=== PATIENT | male | born 1960 | race Caucasian/White ===

== ENCOUNTER 2016-08-11 22:43 | Emergency (ER) | payer OTHER ==
[2016-08-11 23:18] LABS: BASOPHIL 0.5 % (0-2); HCT 44.8 % (42.0-52.0); HGB 15.5 g/dl (13.2-18.0); LYMPHOCYTE 36.5 % (15-48); MCH 31.4 pg (25.0-31.0); MCHC 34.6 g/dL (32.0-36.0); MCV 90.7 fL (78.0-100.0); MONOCYTE 9.3 % (0-12); NEUTROPHIL 48.7 % (41-80); PLT 295 K/uL (150-400); RBC 4.94 M/uL (4.70-6.00); RDW 14.4 % (11.5-14.0); WBC 15.1 K/uL (4.0-10.5)
[2016-08-11 23:43] LABS: BILIRUBIN - TOTAL 0.3 mg/dL (0.1-1.0); CREATININE 1.3 mg/dL (0.7-1.2); GLOBULIN (CALCULATION) 2.4 g/dL (2.2-4.2); POTASSIUM 3.2 mmol/L (3.5-5.1); TOTAL PROTEIN 6.4 g/dL (6.4-8.3)
[2016-08-12 00:13] LABS: BILIRUBIN NEGATIVE (NEGATIVE); BLOOD 3+ Ery/uL (NEGATIVE); CLARITY TURBID (CLEAR); COLOR RED (YELLOW); GLUCOSE (U) NORMAL (NORMAL); KETONE (U) 1+ (SMALL) mg/dL (NEGATIVE); LEUKOCYTES 1+ Leu/uL (NEGATIVE); NITRITE POSITIVE (NEGATIVE); PROTEIN 3+ mg/dL (NEGATIVE); SPECIFIC GRAVITY 1.025 (1.001-1.030); pH 6.5 (5.0-9.0)
[2016-08-12 00:15] LABS: BACTERIA TRACE; URINARY RBC TNTC
[2016-08-12 00:16] LABS: CALCIUM OXALATE CRYSTALS LARGE
[2016-08-12 01:22] LABS: AMPHETAMINES NEGATIVE (NEGATIVE); BARBITURATES NEGATIVE (NEGATIVE); COCAINE NEGATIVE (NEGATIVE); MARIJUANA (THC) NEGATIVE (NEGATIVE); METHADONE NEGATIVE (NEGATIVE); TRICYCLIC ANTIDEPRESSANT NEGATIVE (NEGATIVE)
[2016-08-12 01:23] LABS: BENZODIAZEPINES POSITIVE (NEGATIVE)
== END 2016-08-12 03:17 | disposition home or self-care (01) ==
LOC: FER 22:43
PROVIDERS: Emergency Medicine
DX: N13.2 Hydronephrosis with renal and ureteral calculous obstruction (principal); R19.7 Diarrhea, unspecified; N50.811 Right testicular pain; J44.9 Chronic obstructive pulmonary disease, unspecified; Z88.0 Allergy status to penicillin; Z79.51 Long term (current) use of inhaled steroids; Z87.19 Personal history of other diseases of the digestive system; Z86.19 Personal history of other infectious and parasitic diseases
CPT/HCPCS: 36415; 80053; 80305; 81001; 82150; 83605; 83690; 85025; 87088; J2270; J2405

== ENCOUNTER 2021-08-28 13:13 | Emergency (ER) | payer OTHER ==
[~2021-08-28 13:13] MED LIST: ASPIRIN325 MG PO; FLEXERIL10 MG PO; IBUPROFEN800 MG PO; MEDROL 4MG DOSEP4 MG PO; PERCOCET 5-3251 EACH PO; PREDNISONE 20MG20 MG PO; ROBAXIN750 MG PO
[2021-08-28] MEDS ORDERED: MOTRIN600 MG PO (15:36)
[2021-08-28] MEDS ORDERED: CLEOCIN HCL150 MG PO (15:36)
== END 2021-08-28 15:52 | disposition home or self-care (01) ==
LOC: FER 13:13
DX: K04.7 Periapical abscess without sinus (principal); F17.210 Nicotine dependence, cigarettes, uncomplicated; Z88.0 Allergy status to penicillin; Z28.310 Unvaccinated for COVID-19
CPT/HCPCS: 99283; Q0163

== ENCOUNTER 2021-10-17 08:45 | Emergency (ER) | payer MEDICARE, OTHER ==
[~2021-10-17 08:45] MED LIST changes: +CLEOCIN HCL150 MG PO; +MOTRIN600 MG PO
[2021-10-17 09:58] LABS: BASOPHIL 0.3 % (0-2); EOSINOPHIL 0.7 % (0-5); HCT 42.8 % (42.0-52.0); HGB 14.2 g/dl (13.2-18.0); MCH 30.8 pg (25.0-31.0); MCHC 33.2 g/dL (32.0-36.0); MCV 92.8 fL (78.0-100.0); MONOCYTE 6.2 % (0-12); MPV 10.2 fL (6.0-9.5); NEUTROPHIL 84.3 % (41-80); NRBC 0; PLT 263 K/uL (150-400); RBC 4.61 M/uL (4.70-6.00); RDW 13.6 % (11.5-14.0); WBC 15.1 K/uL (4.0-10.5)
[2021-10-17 10:11] LABS: ECSTASY (MDMA) POSITIVE (NEGATIVE); MARIJUANA (THC) POSITIVE (NEGATIVE); METHADONE NEGATIVE (NEGATIVE)
[2021-10-17 10:12] LABS: AMPHETAMINES POSITIVE (NEGATIVE); BARBITURATES NEGATIVE (NEGATIVE); OPIATES NEGATIVE (NEGATIVE); OXYCODONE NEGATIVE (NEGATIVE)
[2021-10-17 10:16] LABS: BILIRUBIN NEGATIVE (NEGATIVE); BLOOD TRACE-INTACT Ery/uL (NEGATIVE); CLARITY CLEAR (CLEAR); COLOR YELLOW (YELLOW); GLUCOSE (U) NORMAL (NORMAL); LEUKOCYTES NEGATIVE Leu/uL (NEGATIVE); NITRITE NEGATIVE (NEGATIVE); PROTEIN 1+ mg/dL (NEGATIVE); SPECIFIC GRAVITY >=1.030 (1.001-1.030); UROBILINOGEN 0.2 mg/dL (0.2-1.0)
[2021-10-17 10:32] LABS: BACTERIA TRACE
[2021-10-17 10:33] LABS: GRANULAR CASTS TRACE; MUCOUS TRACE
[2021-10-17 10:54] LABS: ALBUMIN 4.1 g/dL (3.4-5.0); BILIRUBIN - TOTAL 0.6 mg/dL (0.2-1.0); BUN/CREAT RATIO (CALC) 20.2 RATIO; CREATININE 1.14 mg/dL (0.67-1.17); GLOBULIN (CALCULATION) 3.1 g/dL; POTASSIUM 4.2 mmol/L (3.5-5.1); TOTAL PROTEIN 7.2 g/dL (6.4-8.2)
[2021-10-17] MEDS ORDERED: BACTRIM DS TAB1 EACH PO (15:52)
== END 2021-10-17 19:35 | disposition home or self-care (01) ==
LOC: FER 08:45
PROVIDERS: Emergency Medicine
DX: L03.114 Cellulitis of left upper limb (principal); J44.9 Chronic obstructive pulmonary disease, unspecified; F03.90 Unspecified dementia, unspecified severity, without behavioral disturbance, psychotic disturbance, mood disturbance, and anxiety; F20.9 Schizophrenia, unspecified; F17.200 Nicotine dependence, unspecified, uncomplicated; Z88.0 Allergy status to penicillin
CPT/HCPCS: 36415; 70450; 73110; 73200; 80053; 80305; 81001; 83605; 85025; 87040; G0480; J1170

== ENCOUNTER 2021-10-19 13:40 | Emergency (ER) | payer MEDICARE, OTHER ==
[~2021-10-19 13:40] MED LIST changes: +BACTRIM DS TAB1 EACH PO
== END 2021-10-19 16:40 | disposition home or self-care (01) ==
LOC: FER 13:40
DX: S92.411A Displaced fracture of proximal phalanx of right great toe, initial encounter for closed fracture (principal); M79.641 Pain in right hand; F17.210 Nicotine dependence, cigarettes, uncomplicated; J44.9 Chronic obstructive pulmonary disease, unspecified; Z28.310 Unvaccinated for COVID-19; Z88.0 Allergy status to penicillin; Z91.030 Bee allergy status; Y04.0XXA Assault by unarmed brawl or fight, initial encounter; Y92.009 Unspecified place in unspecified non-institutional (private) residence as the place of occurrence of the external cause
CPT/HCPCS: 73130; 73630